=== PATIENT | female | born 1960 | race Caucasian/White ===

== ENCOUNTER 2021-08-19 12:29 | Emergency (ER) | payer OTHER ==
[2021-08-19] MEDS ORDERED: Bacitracin Oint 1 GM U/D Packet TOP ONE (12:57)
== END 2021-08-19 13:17 | disposition home or self-care (01) ==
LOC: JP.ED 12:29
DX: S61.211A Laceration without foreign body of left index finger without damage to nail, initial encounter (principal); K21.9 Gastro-esophageal reflux disease without esophagitis; Z88.0 Allergy status to penicillin; Z72.0 Tobacco use; W26.0XXA Contact with knife, initial encounter
CPT/HCPCS: 99282